=== PATIENT | male | born 1945 | race Caucasian/White ===

== ENCOUNTER 2021-07-30 09:23 | Day surgery (SDC) | payer MEDICARE ==
[~2021-07-30] VITALS: Ht 175.3 cm; Wt 110.0 kg
[~2021-07-30 09:23] MED LIST: BUPIVACAINE/PF 0.5% ONE; LIDOCAINE/PF 1%, 30ML ONE
[2021-07-30 10:19] VITALS: BP 155/96
[2021-07-30] MEDS ORDERED: METF500T17 PO (10:22)
[2021-07-30] MEDS ORDERED: BUSP7.5T5 PO (10:22)
[2021-07-30] MEDS ORDERED: EMPA25TA PO (10:22)
[2021-07-30] MEDS ORDERED: LISI40TA9 PO (10:22)
[2021-07-30] MEDS ORDERED: INSU100I11 SQ (10:22)
[2021-07-30] MEDS ORDERED: AMLO-150 PO (10:22)
[2021-07-30] MEDS ORDERED: OMEP-110 PO (10:22)
[2021-07-30] MEDS ORDERED: INSU100V8 SQ (10:22)
[2021-07-30] MEDS ORDERED: ATOR10TA9 PO (10:22)
[2021-07-30] MEDS ORDERED: WARF-36 PO (10:29)
[2021-07-30] MEDS ORDERED: CHOL200052 PO (10:29)
[2021-07-30] MEDS ORDERED: SEMA1PEN3 SQ (10:29)
[2021-07-30] MEDS ORDERED: CHLORHEXIDINE 15 ML UDC PO ONE (10:30)
[2021-07-30] MEDS ORDERED: LACTATED RINGERS 1,000 ML IV SCH (10:30)
[2021-07-30 11:00] LABS: INTERNATIONAL NORMALIZED RATIO 1.49 (0.93-1.1); PROTHROMBIN TIME 15.6 Seconds (9.6-11.5)
[2021-07-30] MEDS ORDERED: PROMETHAZINE 25 MG/ML, 1ML IVPush PRN (11:00)
[2021-07-30] MEDS ORDERED: MEPERIDINE/PF 25MG/0.5ML IVPush PRN (11:00)
[2021-07-30] MEDS ORDERED: HYDROcodone/APAP 7.5-325MG/15ML UDC PO PRN (11:00)
[2021-07-30] MEDS ORDERED: HYDROmorphone 1 MG/ML, 1ML INJ IVPush PRN (11:00)
[2021-07-30] MEDS ORDERED: ONDANSETRON 2MG/ML, 2ML IVPush PRN (11:00)
[2021-07-30 11:05] LABS: ALBUMIN 3.6 g/dL (3.4-5.0); ANION GAP 8 mmol/L (5-15); CALCIUM 8.7 mg/dL (8.5-10.1); CHLORIDE 110 mmol/L (98-107)
[2021-07-30 11:08] LABS: ALANINE AMINOTRANSFERASE 30 U/L (12-78); ALKALINE PHOSPHATASE 89 U/L (45-117); BILIRUBIN,TOTAL 1.3 mg/dL (0.2-1.0); CREATININE 1.16 mg/dL (0.7-1.3); TOTAL PROTEIN 7.7 g/dL (6.4-8.2)
[2021-07-30] MEDS ORDERED: FENTANYL PF 100 MCG/2ML ONE ×2 (11:09→12:27)
[2021-07-30] MEDS ORDERED: CEFAZOLIN 1,000 MG ONE (11:16)
[2021-07-30] MEDS ORDERED: DEXAMETHASONE 4 MG/ML, 1ML ONE (11:16)
[2021-07-30] MEDS ORDERED: ONDANSETRON 2MG/ML, 2ML ONE (11:16)
[2021-07-30] MEDS ORDERED: PROPOFOL 10 MG/ML, 20ML ONE (11:16)
[2021-07-30] MEDS ORDERED: OXYcodone 5 MG/5 ML ORAL.SOL UDC ONE (12:27)
[2021-07-30] MEDS: FENTANYL PF 100 MCG/2ML IV PRN ×2 (12:28→12:41)
[2021-07-30] MEDS: OXYcodone 5 MG/5 ML ORAL.SOL UDC PO PRN ×2 (12:30→13:40)
[2021-07-30] MEDS ORDERED: hydrALAzine 20 MG/ML, 1ML ONE (13:00)
[2021-07-30] MEDS ORDERED: hydrALAzine 20 MG/ML, 1ML IV PRN (13:00)
[2021-07-30] MEDS ORDERED: OXYC5TAB98 PO (13:43)
== END 2021-07-30 14:30 | disposition home or self-care (01) ==
LOC: OUT 09:23
PROVIDERS: ATTEND Orthopaedic Surgery
DX: G56.02 Carpal tunnel syndrome, left upper limb (principal); M19.042 Primary osteoarthritis, left hand; Z79.01 Long term (current) use of anticoagulants; Z79.899 Other long term (current) drug therapy
CPT/HCPCS: 25310; 25447; 64721; 80053; 82962; 85610; 93005; J0360; J3010; J7120; J0690; J1100; J2405; J2704